=== PATIENT | female | born 1960 | race Caucasian/White ===

== ENCOUNTER 2017-05-17 23:36 | Emergency (ER) | payer BC ==
[2017-05-18 00:31] LABS: #Basophils 0.1 thou/uL (0.0-0.2); #Eosinphils 0.2 thou/uL (0.0-0.7); #Monocytes 0.6 thou/uL (0.11-0.59); #Neutrophils 3.3 thou/uL (1.40-6.50); %Basophils 1.5 % (0.0-1.0); %Eosinophils 2.8 % (0.0-10.0); %Lymphocytes 41.1 % (21.0-51.0); %Monocytes 8.4 % (0.0-10.0); Hematocrit 38.9 % (36.0-47.0); Red Blood Cell (RBC) Count 4.12 mill/uL (4.20-5.40); White Blood Cell (WBC) Count 7.2 thou/uL (4.8-10.8)
[2017-05-18 00:37] LABS: PTT 28.6 SEC (22.9-36.1); Prothrombin Time 13.1 SEC (12.0-14.7)
[2017-05-18 00:48] LABS: Lactic Acid - Sepsis 0.8 mmol/L (0.5-2.2)
[2017-05-18 00:55] LABS: ALT (SGPT) 9 U/L (8-55); AST (SGOT) 15 U/L (5-34); Alkaline Phosphatase 77 U/L (40-150); Anion Gap 12 mmol/L (10-20); BUN (Urea Nitrogen) 25 mg/dL (9.8-20.1); Bilirubin, Total 0.2 mg/dL (0.2-1.2); CK (CPK) 111 U/L (29-168); Calc. Creatinine Clearance 0 mL/min (70-130); Calcium 9.4 mg/dL (7.8-10.44); Carbon Dioxide 25 mmol/L (22-29); Chloride 107 mmol/L (98-107); Estimated GFR-MDRD 73; Globulin 2.8 g/dL (2.4-3.5); Lipase 216 U/L (8-78); Protein, Total 6.9 g/dL (6.0-8.3)
[2017-05-18 00:56] LABS: Troponin I Less than 0.010 ng/mL (< 0.028)
--- NOTE | 2017-05-18 09:02 | CT ---
PRELIMINARY REPORT/[facility]/EMERGENCY AFTER HOURS PROCEDURE: EXAM: CT Angiography Chest With Intravenous Contrast EXAM DATE/TIME: Exam ordered 05/18/2017 1:00 AM CLINICAL HISTORY: 57 years old, female; Signs and symptoms; Cough; Symptoms not specified; Patient HX: Er7. . . .57 yo f presents to ed C/O cough onset x1 week [employer]. Pt states that tonight took some cough medicine then st arted coughing up blood. Denies chest pain. Pt is a smoker TECHNIQUE: Axial computed tomographic angiography images of the chest with intravenous contrast using pulmonary embolism protocol. Coronal reformatted images were created and reviewed. CONTRAST: 68 mL of [id number] administered intravenously. COMPARISON: No relevant prior studies available. FINDINGS: Pulmonary arteries: There is no evidence of peripheral filling defects within the pulmonary arterial circulation to suggest pulmonary embolism. The pulmonary arteries are not enlarged. Aorta: The aorta is normal. No thoracic aortic aneurysm. Lungs: There is nonspecific biapical lung interstitial thickening/consolidation compatible with atelectasis, granulomatous change and/or scarring. A 4 mm subpleural nodule is also noted overlying t he anterior lateral LEFT lower lobe. Pleural space: Normal. No significant effusion. No pneumothorax. Heart: The cardiac structures are normal. No significant pericardial effusion. No evidence of RV dysf unction. Mediastinum: The trachea is normal. Thyroid: The visualized thyroid gland is unremarkable. Bones/joints: No acute fracture. No dislocation. Soft tissues: Normal. Lymph nodes: There is a 5 mm intrapulmonary lymph node near the RIGHT major fissure. Upper abdomen: The visualized intra-abdominal structures are normal. IMPRESSION: There is no CT evidence of acute pulmonary embolism. Nonspecific biapical lung thickening/scarring as above. Thank you for allowing us to participate in the care of your patient. Dictated and Authenticated by: Micah Vasquez MD 05/18/2017 1:33 AM Central Time ([place] & [place]) FINAL REPORT EMERGENCY AFTER HOURS CT ANGIOGRAM THORAX WITH IV CONTRAST AND 3D RECONSTRUCTIONS: Date: 05-18-17 History: Cough with onset one week prior to arrival. IMPRESSION: 1. Nonspecific biapical patchy opacity seen at the posterior aspect of each lung apex. This could be related to apical pleural and parenchymal scarring. 2. Pleural based pulmonary nodules lateral aspect right lower lobe measuring 6 mm as well as a left l ower lobe measuring approximately 4 mm. This could be related to areas of nodular pleural thickening, but follow up in 6 months is suggested. 3. No CT evidence of a pulmonary embolus. 4. Findings in agreement with preliminary report by NEELIMA. Code LN. POS: THAD
[2017-05-18] MEDS ORDERED: ISOVUE-370 76%-LOCM 1 ML ONE (13:53)
== END 2017-05-18 02:11 | disposition home or self-care (01) ==
LOC: ERS 23:36
DX: J18.9 Pneumonia, unspecified organism (principal); R91.1 Solitary pulmonary nodule; F17.210 Nicotine dependence, cigarettes, uncomplicated; F41.9 Anxiety disorder, unspecified; F32.9 Major depressive disorder, single episode, unspecified
CPT/HCPCS: 36415; 71275; 80053; 82553; 83605; 83690; 83880; 84484; 85025; 85610; 85730; 87040; 93005; 96361; 96374; J0696

== ENCOUNTER 2017-12-01 12:28 | Outpatient (CLI) | payer BC ==
--- NOTE | 2017-12-01 13:58 | RAD ---
CHEST 2 VIEWS: Date: 12/01/17 HISTORY: Dyspnea. COMPARISON: 05/18/17. FINDINGS: Cardiac silhouette and pulmonary vasculature are unremarkable. Lungs are hyperinflated with flattenin g of the hemidiaphragms. Biapical pleural thickening and apical scarring. No confluent air space cons olidation, pneumothorax, or pleural fluid. IMPRESSION: COPD. Stable radiographic appearance of the chest. POS: HIMANSHU
== END 2017-12-01 12:29 | disposition home or self-care (01) ==
LOC: RAD 12:28
PROVIDERS: ATTEND Internal Medicine Pulmonary Disease
DX: J44.9 Chronic obstructive pulmonary disease, unspecified (principal)
CPT/HCPCS: 71046

== ENCOUNTER 2018-05-30 13:00 | Outpatient (CLI) | payer BC ==
--- NOTE | 2018-05-30 14:04 | RAD ---
TWO VIEWS CHEST: Comparison: 12-01-17 Indication: Dyspnea. FINDINGS: Lungs remain hyperinflated with mild interstitial prominence. Biapical pleural irregularity is simila r in appearance. Cardiac silhouette is normal in size. No significant interval change. IMPRESSION: 1. COPD. 2. No new consolidation. POS: [facility]
== END 2018-05-30 13:01 | disposition home or self-care (01) ==
LOC: RAD 13:00
PROVIDERS: ATTEND Internal Medicine Pulmonary Disease
DX: R06.00 Dyspnea, unspecified (principal); J44.9 Chronic obstructive pulmonary disease, unspecified
CPT/HCPCS: 71046

== ENCOUNTER 2018-11-29 12:36 | Outpatient (CLI) | payer BC ==
--- NOTE | 2018-11-29 12:53 | RAD ---
XR Chest Pa Lat @ [facility] History: [Dyspnea] Comparison: Radiograph May 2018 Findings: Lungs are hyperinflated. Mild scarring lung apices. Chronic interstitial lung markings lung bases. There is a round nodular density projecting over the right upper lobe at the fourth-fifth rib intersp get No acute osseous abnormality. Heart size is not significantly enlarged. Impression: Nodular density projecting in the right upper lobe may reflect the known extensive scarri ng versus a nodule. Nonemergent CT of the chest is recommended.
== END 2018-11-29 12:37 | disposition home or self-care (01) ==
LOC: RAD 12:36
PROVIDERS: ATTEND Internal Medicine Pulmonary Disease
DX: R06.00 Dyspnea, unspecified (principal)
CPT/HCPCS: 71046